=== PATIENT | female | born 1935 | race Caucasian/White ===

== ENCOUNTER 2022-01-10 06:49 | Day surgery (SDC) | payer MEDICARE ==
[~2022-01-10] VITALS: Ht 149.9 cm; Wt 75.2 kg
[2022-01-10] VITALS (11 sets, daily range): BP systolic 112–180; BP diastolic 52–72
[2022-01-10] MEDS ORDERED: diphenhydrAMINE 25mg capsule PO PRN (07:20)
[2022-01-10] MEDS ORDERED: normal saline 1,000 ML IV SCH (07:20)
[2022-01-10] MEDS ORDERED: DICL50TA6 PO (07:39)
[2022-01-10] MEDS ORDERED: ASPI81TA52 PO (07:39)
[2022-01-10] MEDS ORDERED: CARV-50 PO (07:39)
[2022-01-10] MEDS ORDERED: FURO-150 PO (07:39)
[2022-01-10] MEDS ORDERED: LOVA20TA2 PO (07:39)
[2022-01-10 08:13] LABS: ALBUMIN 3.7 G/DL (3.4-5.0); ANION GAP 9 (8-16); BASOPHILS # (AUTO) 0.1 X10'3 (0-0.2); BASOPHILS % (AUTO) 1.4 % (0-1); BLOOD UREA NITROGEN 28 MG/DL (7-18); BUN/CREATININE RATIO 27.7 (6.6-38.0); CALCIUM 9.5 MG/DL (8.5-10.1); CHLORIDE 101 MMOL/L (99-107); CREATININE 1.01 MG/DL (0.40-0.90); EOSINOPHILS # (AUTO) 0.3 X10'3 (0-0.9); GLUCOSE 147 MG/DL (70-104); LYMPHOCYTES # (AUTO) 1.9 X10'3 (1.1-4.8); MAGNESIUM 2.3 MG/DL (1.5-2.4); MEAN CORPUSCULAR HEMOGLOBIN 31.2 PG (27.0-31.0); MEAN CORPUSCULAR HGB CONC 33.4 g/dL (33.0-36.5); MEAN CORPUSCULAR VOLUME 93.4 FL (78-98); MEAN PLATELET VOLUME 8.5 FL (7.4-10.4); MONOCYTES # (AUTO) 0.6 X10'3 (0-0.9); MONOCYTES % (AUTO) 7.7 % (2-12); NEUTROPHILS # (AUTO) 4.4 X10'3 (1.8-7.7); NEUTROPHILS % (AUTO) 60.9 % (42-75); PLATELET COUNT 237 X10'3 (140-440); POTASSIUM 3.9 MMOL/L (3.5-5.1); RED BLOOD COUNT 3.85 X10'6 (4.20-5.60); RED CELL DISTRIBUTION WIDTH 13.5 % (11.5-14.5); SODIUM 138 MMOL/L (135-145); TOTAL CARBON DIOXIDE 27.8 MMOL/L (24-32); WHITE BLOOD COUNT 7.3 X10'3 (4.5-11.0); eGFR 52 ML/MIN
[2022-01-10] MEDS ORDERED: midazolam 1 mg/ML 2ml injection ONE ×3 (08:49→09:34)
[2022-01-10] MEDS ORDERED: nitroGLYCERIN-Tridil 50MG/D5W 0 ML IV ONE (08:49)
[2022-01-10] MEDS ORDERED: LIDOcaine 1% 30ml preserv. free vial ONE (08:49)
[2022-01-10] MEDS ORDERED: heparin 1,000unit/ml 10ml vial 10 ML ONE (08:50)
[2022-01-10] MEDS ORDERED: iohexol 350MG/ML 100ml bottle IV ONE ×2 (08:50→09:48)
[2022-01-10] MEDS ORDERED: iohexol 350 MG/ML 50ML vial IV ONE (08:51)
[2022-01-10] MEDS ORDERED: nitroGLYCERIN 0.4mg SUBLingual tab SL ONE (10:05)
[2022-01-10] MEDS ORDERED: proCHLORperazine 10 MG/2 ml inj IV PRN (11:10)
[2022-01-10] MEDS ORDERED: ondansetron/PF 4mg/2ml inj IV PRN (11:10)
[2022-01-10] MEDS ORDERED: HYDROcodone/acetaminophen 10/325mg tab PO PRN (11:40)
[2022-01-10] MEDS ORDERED: HYDROcodone/acetaminophen 5mg/325mg tablet PO PRN (11:40)
== END 2022-01-10 14:10 | disposition home or self-care (01) ==
LOC: SSTAY O 06:49
PROVIDERS: ATTEND Internal Medicine Cardiovascular Disease
DX: I25.118 Atherosclerotic heart disease of native coronary artery with other forms of angina pectoris (principal); I65.23 Occlusion and stenosis of bilateral carotid arteries; I35.0 Nonrheumatic aortic (valve) stenosis; I10 Essential (primary) hypertension; I25.2 Old myocardial infarction; E78.5 Hyperlipidemia, unspecified; Z95.1 Presence of aortocoronary bypass graft; Z95.5 Presence of coronary angioplasty implant and graft; Z98.890 Other specified postprocedural states; Z90.710 Acquired absence of both cervix and uterus; Z96.652 Presence of left artificial knee joint; Z79.82 Long term (current) use of aspirin; Z79.899 Other long term (current) drug therapy; Z87.891 Personal history of nicotine dependence; Z88.5 Allergy status to narcotic agent; Z88.0 Allergy status to penicillin
CPT/HCPCS: 36415; 80048; 83735; 85025; 85610; 93005; 93459; 99152; 99153; C1760; C1769; C1894; J1644; J2250; J3490; J7030; Q0163; Q9967; 36222; A4615; A4620; A6258; C1725

== ENCOUNTER 2022-02-13 07:18 | Inpatient (IN) | payer MEDICARE, MEDICAID ==
[2022-02-12 11:23] LABS: BASOPHILS # (AUTO) 0.1 X10'3 (0-0.2); BASOPHILS % (AUTO) 0.7 % (0-1); EOSINOPHILS # (AUTO) 0.2 X10'3 (0-0.9); EOSINOPHILS % (AUTO) 2.8 % (0-6); LYMPHOCYTES # (AUTO) 1.7 X10'3 (1.1-4.8); LYMPHOCYTES % (AUTO) 24.6 % (21-51); MEAN CORPUSCULAR HEMOGLOBIN 31.2 PG (27.0-31.0); MEAN CORPUSCULAR HGB CONC 33.2 g/dL (33.0-36.5); MEAN CORPUSCULAR VOLUME 94.1 FL (78-98); MEAN PLATELET VOLUME 8.5 FL (7.4-10.4); MONOCYTES # (AUTO) 0.8 X10'3 (0-0.9); NEUTROPHILS % (AUTO) 59.9 % (42-75); PRE OP HEMATOCRIT 35.2 % (35.0-45.0); PRE OP HEMOGLOBIN 11.7 g/dL (12.0-16.0); PRE OP PLATELET COUNT 201 X10'3 (140-440); RED BLOOD COUNT 3.74 X10'6 (4.20-5.60); RED CELL DISTRIBUTION WIDTH 12.9 % (11.5-14.5)
[2022-02-12 11:35] LABS: ALBUMIN 3.6 G/DL (3.4-5.0); ALBUMIN/GLOBULIN RATIO 1.1 (1.1-1.5); ALKALINE PHOSPHATASE 71 IU/L (46-116); BLOOD UREA NITROGEN 16 MG/DL (7-18); BUN/CREATININE RATIO 17.6 (6.6-38.0); CALCIUM 8.4 MG/DL (8.5-10.1); CHLORIDE 101 MMOL/L (99-107); CREATININE 0.91 MG/DL (0.40-0.90); PRE OP ALT 23 U/L (30-65); PRE OP ANION GAP 9 (8-16); PRE OP AST 27 U/L (10-37); PRE OP BILIRUB, TOTAL 0.6 MG/DL (0.0-1.0); PRE OP GLUCOSE 99 MG/DL (70-104); PRE OP POTASSIUM 4.9 MMOL/L (3.4-5.1); PRE OP SODIUM 136 MMOL/L (135-145); TOTAL CARBON DIOXIDE 25.7 MMOL/L (24-32); eGFR 59 ML/MIN
[~2022-02-13] VITALS: Ht 154.9 cm; Wt 75.0 kg
[2022-02-13] VITALS (27 sets, daily range): BP systolic 105–129; BP diastolic 40–64
[~2022-02-13 07:18] MED LIST: CARV-50 PO; DICL50TA6 PO; DOCUMENT DATE & TIME OF BETA-BLOCKER PO ONE; FLAX10007 PO; FURO-150 PO; LOVA40TA2 PO; MAGN250T11 PO; MULT-1085 PO; POTA99CA PO; VITAMIN A; ceFAZolin inj. 2,000 MG in dextrose 5%-water 100 ML IV ONE; famotidine 20mg tablet PO ONE; metoprolol tartrate 12.5mg (1/2 tablet) PO ONE; mupirocin 2% nasal ointment 1gm UD NS ONE; nitroPRUSSIDE 0.2mg/mL in NS 100 ML IV SCH; ringers solution, lacted 1,000 ML IV SCH
--- NOTE | 2022-02-13 08:59 | NUR ---
FAMOTIDINE IS NOT SCANNING PROPERLY. CHECKED IT ANS SCANNED IT MANUALLY. PHARMACY HAS BEEN NOTIFIED SEVERAL TIMES MEDICATION: FAMOTIDINE 20MG EXP 10/16
[2022-02-13] MEDS ORDERED: heparin 10,000 units/1 ML INJ ONE (09:48)
[2022-02-13] MEDS ORDERED: LIDOcaine 1% (10mg/ml) 2ml vial ONE ×2 (09:48→09:54)
[2022-02-13] MEDS ORDERED: sevoflurane 250ml liquid IH ONE (09:59)
[2022-02-13] MEDS ORDERED: PHENYLephrine 10mg/ml 5ml injection IV ONE (09:59)
[2022-02-13] MEDS ORDERED: nitroPRUSSIDE 20mg/NS 100mL (0.2mg/mL) VIAL (200mcg/ml) IV ONE (09:59)
[2022-02-13] MEDS ORDERED: hydrALAZINE 20mg/ml inj. IV PRN (10:00)
[2022-02-13] MEDS ORDERED: labetalol 20mg/4ml (5mg/ml) syringe IV PRN (10:00)
[2022-02-13] MEDS ORDERED: proCHLORperazine 10 MG/2 ml inj IV PRN (10:00)
[2022-02-13] MEDS ORDERED: HYDROmorphone/PF 0.2 MG/ML SYRINGE IV PRN (10:00)
[2022-02-13] MEDS ORDERED: ringers solution, lacted 1,000 ML IV SCH (10:00)
[2022-02-13] MEDS ORDERED: ondansetron/PF 4mg/2ml inj IV PRN ×2 (10:00→11:45)
[2022-02-13] MEDS ORDERED: acetaminophen 1,000mg/100ml IV 100 ML IV PRN (10:00)
[2022-02-13] MEDS ORDERED: meperidine/PF 25mg/ml syringe IV PRN (10:00)
[2022-02-13] MEDS ORDERED: midazolam 1 mg/ML 2ml injection ONE (10:11)
[2022-02-13] MEDS ORDERED: meperidine/PF 25mg/ml syringe ONE (10:12)
[2022-02-13] MEDS ORDERED: propofol inj 20 ML IV ONE (10:33)
[2022-02-13] MEDS ORDERED: LIDOcaine 2% (20mg/ml) 5ml vial ONE (10:33)
[2022-02-13] MEDS ORDERED: rocuronium 10mg/ml inj IV ONE (10:33)
[2022-02-13] MEDS ORDERED: ePHEDrine 50MG/ML INJ. ONE (10:33)
[2022-02-13] MEDS ORDERED: 0.9 % SODIUM CHLORIDE 10 ML VIAL ONE (10:47)
[2022-02-13] MEDS ORDERED: ondansetron/PF 4mg/2ml inj ONE (10:47)
[2022-02-13] MEDS ORDERED: dexamethasone sod phosphate 4mg/ml inj. ONE (10:47)
[2022-02-13] MEDS ORDERED: neostigmine methylsulfate 1 MG/ML 10ml vial ONE (11:35)
[2022-02-13] MEDS ORDERED: glycopyrrolate 0.2mg/ml inj ONE (11:35)
[2022-02-13] MEDS ORDERED: labetalol 20mg/4ml (5mg/ml) syringe IV ONE (11:43)
[2022-02-13] MEDS ORDERED: metoclopramide 5 mg/ml inj IV PRN (11:45)
[2022-02-13] MEDS ORDERED: albuterol 2.5 MG/3 ML nebule NEB PRN (11:45)
[2022-02-13] MEDS ORDERED: naloxone 0.4 mg/ml inj IV PRN (11:45)
--- NOTE | 2022-02-13 11:49 | NUR ---
Received from OR via ICU BED , accompanied by Anesthesiologist KELLEY and report given by Anesthesiolgist. ART LINE IN RIGHT UE WELL 20GPIV IN LEFT UE RUNNING LR AT 100. PAINFUL AT THIS TIME. STATES 8-10 HEAD ACHE. WILL MEDICATE TO ASSIST. HOB ELEVATED SLIGHTLY. PATIENT WITTH 10L MASK ON WITH 99% SATURATIONS. PATIENT WITH LEFT NECK DRESSING THAT IS CDI. MARYBETH DRAIN IN PLACE. SCDS DONNED UPON ARRIVAL. PATIENT WITH ONE BAG OF BELONGINGS PLACED ON FOB. PATIENT WITH SYMMETRICAL SMILE, TONGUE MIDLINE AND UE'S AND LE'S PUSH PULLS AND CORPORATE TRAVEL MANAGER ALL EQUAL. Addendum: 02/13/22 at 1206 by Mark Denton RN, RN Amended: Links added.
[2022-02-13] MEDS ORDERED: niCARdipine I.V. 50 MG in normal saline 250ml IV soln 230 ML IV SCH (11:50)
[2022-02-13] MEDS: meperidine/PF 25mg/ml syringe IV PRN ×2 (12:12→12:18)
--- NOTE | 2022-02-13 12:41 | NUR ---
PUSH PULLS AND CHEMICAL SUPERVISOR ALL STILL EQUAL AND STRONG TONGUE MIDLINE, SMILE SYMMETRICAL AND PATIENT ABLE TO SWALLOW. NECK DRESSING STILL CDI. Addendum: 02/13/22 at 1244 by Mark Denton RN, RN Amended: Links added.
[2022-02-13] MEDS ORDERED: [UNRECOGNIZED DRUG - OTHER] IV SCH (13:00)
[2022-02-13] MEDS ORDERED: NICARDIPINE IV SCH (13:00)
--- NOTE | 2022-02-13 13:10 | NUR ---
RODBUSTER DAREN NOTIFIED OF CUFF VS ART LINE BPS 110 CUFF WITH 120 ART. MATERIAL LIAISON DAREN STATES THIS IS ACCEPTABLE. AWAITING ROOM AVAILABLILITY IN THE ICU. Addendum: 02/13/22 at 1311 by Mark Denton RN, RN Amended: Links added.
--- NOTE | 2022-02-13 14:14 | NUR ---
REPORT GIVEN AND ALL QUESTIONS ANSWERED. PATIENT TRANSFERRED TO ICU. LABELED BELONGINGS PRESENT AND DELIVERED TO ROOM. RN PRESENT ALL CRITERIA FOR TRANSFER BACK TO THE FLOOR HAS BEEN ACHIEVED. VSS. PAIN AT A TOLERABLE LEVEL. BED LOW, CALL LIGHT PRESENT AND 2 RAILS DOWN. RN AWARE THAT PATIENT HAS ARRIVED. TO ACCEPT CARE OF PATIENT.DENTURES X2 IN MOUTH. ONE BAG OF BELONGINGS SENT WITH PATIENT. Addendum: 02/13/22 at 1431 by Mark Denton RN, RN Amended: Links added.
[2022-02-13] MEDS ORDERED: acetaminophen 325mg tablet PO PRN (15:10)
[2022-02-13] MEDS: phenylephrine inj 50 MG in normal saline 250ml IV solN IV SCH (15:42)
[2022-02-13] MEDS: niCARDipine-NS 40mg/200ml IVPB 200 ML IV SCH ×2 (15:44→22:40)
[2022-02-13] MEDS: ceFAZolin 1GM/D5W- ADD-VANTAGE 50 ML IV SCH (16:11)
--- NOTE | 2022-02-13 18:20 | NUR ---
Report to Manda ALEJO
--- NOTE | 2022-02-13 18:30 | NUR ---
Patient in room CICU 2007. I have received report from Rios ALEJO and had the opportunity to ask questions and assume patient care.
[2022-02-13] MEDS: HYDROcodone/acetaminophen 5mg/325mg tablet PO PRN ×2 (19:52→23:40)
[2022-02-13] MEDS: DICLOFENAC POTASSIUM 50 MG PO SCH (20:00)
[2022-02-14] VITALS (11 sets, daily range): BP systolic 110–143; BP diastolic 49–71
[2022-02-14] MEDS: ceFAZolin 1GM/D5W- ADD-VANTAGE 50 ML IV SCH ×2 (00:10→07:44)
[2022-02-14 03:58] LABS: BASOPHILS % (AUTO) 0.6 % (0-1); EOSINOPHILS % (AUTO) 0 % (0-6); HEMATOCRIT 29.9 % (35.0-45.0); LYMPHOCYTES # (AUTO) 0.9 X10'3 (1.1-4.8); MEAN CORPUSCULAR HEMOGLOBIN 31.1 PG (27.0-31.0); MEAN CORPUSCULAR HGB CONC 33.5 g/dL (33.0-36.5); MEAN CORPUSCULAR VOLUME 92.8 FL (78-98); MEAN PLATELET VOLUME 8.7 FL (7.4-10.4); MONOCYTES # (AUTO) 0.4 X10'3 (0-0.9); MONOCYTES % (AUTO) 11.7 % (2-12); NEUTROPHILS # (AUTO) 2.3 X10'3 (1.8-7.7); NEUTROPHILS % (AUTO) 63.7 % (42-75); PLATELET COUNT 177 X10'3 (140-440); RED BLOOD COUNT 3.22 X10'6 (4.20-5.60); WHITE BLOOD COUNT 3.7 X10'3 (4.5-11.0)
[2022-02-14 04:05] LABS: ALBUMIN 3.1 G/DL (3.4-5.0); ANION GAP 6 (8-16); BLOOD UREA NITROGEN 13 MG/DL (7-18); BUN/CREATININE RATIO 18.1 (6.6-38.0); CALCIUM 8.1 MG/DL (8.5-10.1); CHLORIDE 103 MMOL/L (99-107); CREATININE 0.72 MG/DL (0.40-0.90); GLUCOSE 152 MG/DL (70-104); POTASSIUM 3.9 MMOL/L (3.5-5.1); SODIUM 135 MMOL/L (135-145); TOTAL CARBON DIOXIDE 25.7 MMOL/L (24-32); eGFR 77 ML/MIN
[2022-02-14] MEDS: phenylephrine inj 50 MG in normal saline 250ml IV solN IV SCH (04:11)
[2022-02-14] MEDS: niCARDipine-NS 40mg/200ml IVPB 200 ML IV SCH (06:40)
[2022-02-14] MEDS ORDERED: CLOP-32 PO (07:50)
[2022-02-14] MEDS: DICLOFENAC POTASSIUM 50 MG PO SCH (08:00)
[2022-02-14] MEDS ORDERED: non-formulary drug (Magnesium Oxide (Magnesium) 250 MG) PO SCH (08:00)
[2022-02-14] MEDS ORDERED: clopidogrel 75mg tablet PO SCH (08:00)
[2022-02-14] MEDS ORDERED: carVEDilol 12.5mg tablet PO SCH (08:00)
[2022-02-14] MEDS ORDERED: multivitamins, therapeutics tablet PO SCH (08:00)
[2022-02-14] MEDS ORDERED: furosemide 20MG tablet PO SCH (08:00)
[2022-02-14] MEDS ORDERED: atorvastatin 10mg tablet PO SCH (08:00)
== END 2022-02-14 11:15 | disposition home or self-care (01) | DRG 39 ==
LOC: PAS IN 07:45 → UNDOADMIN 07:45 → PAS IN 11:47 → CICU 2S 13:20 → PAS IN 13:34 → CICU 2S 13:34
PROVIDERS: ADMIT Thoracic Surgery (Cardiothoracic Vascular Surgery); ATTEND Thoracic Surgery (Cardiothoracic Vascular Surgery)
PROC: 03CN0ZZ Extirpation of Matter from Left External Carotid Artery, Open Approach (ICD-10-PCS; 2022-02-13)
PROC: 03CL0ZZ Extirpation of Matter from Left Internal Carotid Artery, Open Approach (ICD-10-PCS; 2022-02-13)
PROC: 03UL0KZ Supplement Left Internal Carotid Artery with Nonautologous Tissue Substitute, Open Approach (ICD-10-PCS; 2022-02-13)
PROC: 03UN0KZ Supplement Left External Carotid Artery with Nonautologous Tissue Substitute, Open Approach (ICD-10-PCS; 2022-02-13)
PROC: 03UJ0KZ Supplement Left Common Carotid Artery with Nonautologous Tissue Substitute, Open Approach (ICD-10-PCS; 2022-02-13)
PROC: 03CJ0ZZ Extirpation of Matter from Left Common Carotid Artery, Open Approach (ICD-10-PCS; principal; 2022-02-13 09:59)
DX: I65.22 Occlusion and stenosis of left carotid artery (principal); I35.0 Nonrheumatic aortic (valve) stenosis; E78.5 Hyperlipidemia, unspecified; I10 Essential (primary) hypertension
CPT/HCPCS: 36415; 71045; 71046; 80048; 80053; 82948; 85025; 86885; 86900; 86901; 87081; 93005; A4615; A4618; A6250; A6258; A6402; A6449; A7000; C1768; G0378; J0131; J0690; J1100; J1644; J2175; J2250; J2370; J2405; J2704; J2710; J3490; J7030; J7050; J7060; J7120

== ENCOUNTER 2022-03-21 07:39 | Day surgery (SDC) | payer MEDICARE, MEDICAID ==
[2022-03-14 16:08] LABS: BASOPHILS # (AUTO) 0.1 X10'3 (0-0.2); BASOPHILS % (AUTO) 0.8 % (0-1); EOSINOPHILS # (AUTO) 0.3 X10'3 (0-0.9); EOSINOPHILS % (AUTO) 4.1 % (0-6); LYMPHOCYTES # (AUTO) 2.1 X10'3 (1.1-4.8); LYMPHOCYTES % (AUTO) 30.5 % (21-51); MEAN CORPUSCULAR HEMOGLOBIN 30.9 PG (27.0-31.0); MEAN CORPUSCULAR HGB CONC 33.6 g/dL (33.0-36.5); MEAN CORPUSCULAR VOLUME 91.9 FL (78-98); MEAN PLATELET VOLUME 7.8 FL (7.4-10.4); MONOCYTES # (AUTO) 0.5 X10'3 (0-0.9); MONOCYTES % (AUTO) 7.5 % (2-12); NEUTROPHILS % (AUTO) 57.1 % (42-75); PRE OP HEMATOCRIT 35.8 % (35.0-45.0); PRE OP PLATELET COUNT 236 X10'3 (140-440); RED CELL DISTRIBUTION WIDTH 13.1 % (11.5-14.5)
[2022-03-14 16:23] LABS: ALBUMIN/GLOBULIN RATIO 1.3 (1.1-1.5); ALKALINE PHOSPHATASE 81 IU/L (46-116); BLOOD UREA NITROGEN 23 MG/DL (7-18); BUN/CREATININE RATIO 22.1 (6.6-38.0); CALCIUM 9.1 MG/DL (8.5-10.1); CHLORIDE 102 MMOL/L (99-107); CREATININE 1.04 MG/DL (0.40-0.90); PRE OP ALT 24 U/L (30-65); PRE OP ANION GAP 6 (8-16); PRE OP AST 24 U/L (10-37); PRE OP BILIRUB, TOTAL 0.6 MG/DL (0.0-1.0); PRE OP GLUCOSE 131 MG/DL (70-104); PRE OP POTASSIUM 4.8 MMOL/L (3.4-5.1); PRE OP SODIUM 137 MMOL/L (135-145); TOTAL CARBON DIOXIDE 29.5 MMOL/L (24-32); TOTAL PROTEIN 7.2 G/DL (6.4-8.2); eGFR 50 ML/MIN
[~2022-03-21] VITALS: Ht 157.5 cm; Wt 75.8 kg
[~2022-03-21 07:39] MED LIST changes: +BUPIVAcaine/PF 5 mg/ml 10ml ONE; -FLAX10007 PO; -MAGN250T11 PO; -MULT-1085 PO; +OMEP20CA16 PO; -POTA99CA PO; -VITAMIN A; -ceFAZolin inj. 2,000 MG in dextrose 5%-water 100 ML IV ONE; +clindamycin 600mg/D5W 50ml 50 ML IV ONE; -metoprolol tartrate 12.5mg (1/2 tablet) PO ONE; -mupirocin 2% nasal ointment 1gm UD NS ONE; -nitroPRUSSIDE 0.2mg/mL in NS 100 ML IV SCH
[2022-03-21 07:55] VITALS: BP 185/88
[2022-03-21] MEDS ORDERED: LIDOcaine 0.5% (5mg/ml) 50ml vial ONE (10:17)
[2022-03-21] MEDS ORDERED: hydrALAZINE 20mg/ml inj. IV PRN (10:25)
[2022-03-21] MEDS ORDERED: labetalol 20mg/4ml (5mg/ml) syringe IV PRN (10:25)
[2022-03-21] MEDS ORDERED: acetaminophen 1,000mg/100ml IV 100 ML IV PRN (10:25)
[2022-03-21] MEDS ORDERED: proCHLORperazine 10 MG/2 ml inj IV PRN (10:25)
[2022-03-21] MEDS ORDERED: ondansetron/PF 4mg/2ml inj IV PRN (10:25)
[2022-03-21] MEDS ORDERED: meperidine/PF 25mg/ml syringe IV PRN ×3 (10:25)
[2022-03-21] MEDS ORDERED: ringers solution, lacted 1,000 ML IV SCH (10:25)
[2022-03-21] MEDS ORDERED: midazolam 1 mg/ML 2ml injection ONE (10:39)
[2022-03-21] MEDS ORDERED: propofol inj 20 ML IV ONE (10:55)
[2022-03-21] MEDS ORDERED: meperidine/PF 25mg/ml syringe ONE (10:55)
[2022-03-21 11:03] VITALS: BP 100/64
--- NOTE | 2022-03-21 11:03 | NUR ---
Received from OR via INA, accompanied by Anesthesiologist and report given by Anesthesiologist. PATIENT WAKING UP, NO S/S OF PAIN, V/S WNL, PIV 20G TO RIGHT HAND, LEFT WRIST DRESSING C/D/I. ICE AND ELEVATED LUE. Addendum: 03/21/22 at 1121 by Waylon Kirk RN Amended: Links added.
[2022-03-21 11:10] VITALS: BP 101/67
[2022-03-21 11:20] VITALS: BP 102/73
[2022-03-21 11:30] VITALS: BP 118/63
--- NOTE | 2022-03-21 11:38 | NUR ---
ALL DISCHARGE CRITERIA HAS BEEN MET. VSS, PAIN AT A TOLERABLE LEVEL, ABLE TO SAFELY AMBULATE AND TRANSFER SELF. IV TAKEN OUT WITHOUT ANY COMPLICATIONS. ALL DISCHARGE INSTRUCTIONS COVERED WITH PATIENT AND ALL QUESTIONS ANSWERED. PATIENT TAKEN OUT VIA WHEELCHAIR WITH ALL BELONGINGS TO PERSONAL VEHICLE WHERE FRIEND DROVE PATIENT HOME. Addendum: 03/21/22 at 1152 by Waylon Kirk RN Amended: Links added.
== END 2022-03-21 11:38 | disposition home or self-care (01) ==
LOC: PAS 07:39
PROVIDERS: ATTEND Orthopaedic Surgery Hand Surgery
DX: G56.02 Carpal tunnel syndrome, left upper limb (principal); I10 Essential (primary) hypertension; I25.2 Old myocardial infarction; E11.9 Type 2 diabetes mellitus without complications; M19.90 Unspecified osteoarthritis, unspecified site; Z79.82 Long term (current) use of aspirin; Z79.899 Other long term (current) drug therapy; Z88.1 Allergy status to other antibiotic agents; Z88.5 Allergy status to narcotic agent; Z88.0 Allergy status to penicillin; Z88.4 Allergy status to anesthetic agent; Z90.710 Acquired absence of both cervix and uterus; Z90.49 Acquired absence of other specified parts of digestive tract; Z98.890 Other specified postprocedural states; Z95.1 Presence of aortocoronary bypass graft; Z87.891 Personal history of nicotine dependence
CPT/HCPCS: 36415; 64721; 80053; 82948; 85025; J2175; J2250; J2704; J3490; J7030; J7120; Z7506; Z7512; A4215

== ENCOUNTER 2022-05-26 06:34 | Day surgery (SDC) | payer MEDICARE, MEDICAID ==
[~2022-05-26] VITALS: Ht 157.5 cm; Wt 78.0 kg
[2022-05-26] VITALS (10 sets, daily range): BP systolic 129–165; BP diastolic 52–93
[~2022-05-26 06:34] MED LIST changes: -BUPIVAcaine/PF 5 mg/ml 10ml ONE; -DOCUMENT DATE & TIME OF BETA-BLOCKER PO ONE; -clindamycin 600mg/D5W 50ml 50 ML IV ONE; -famotidine 20mg tablet PO ONE; -ringers solution, lacted 1,000 ML IV SCH
[2022-05-26] MEDS ORDERED: diphenhydrAMINE 25mg capsule PO PRN (07:05)
[2022-05-26] MEDS ORDERED: normal saline 1,000 ML IV SCH (07:05)
[2022-05-26 07:51] LABS: BASOPHILS # (AUTO) 0.1 X10'3 (0-0.2); BASOPHILS % (AUTO) 1.2 % (0-1); EOSINOPHILS # (AUTO) 0.3 X10'3 (0-0.9); EOSINOPHILS % (AUTO) 4.3 % (0-6); HEMATOCRIT 35.2 % (35.0-45.0); LYMPHOCYTES # (AUTO) 1.6 X10'3 (1.1-4.8); LYMPHOCYTES % (AUTO) 22.8 % (21-51); MEAN CORPUSCULAR VOLUME 91.2 FL (78-98); MEAN PLATELET VOLUME 8.8 FL (7.4-10.4); MONOCYTES # (AUTO) 0.6 X10'3 (0-0.9); MONOCYTES % (AUTO) 8.4 % (2-12); NEUTROPHILS # (AUTO) 4.4 X10'3 (1.8-7.7); NEUTROPHILS % (AUTO) 63.3 % (42-75); PLATELET COUNT 213 X10'3 (140-440); RED BLOOD COUNT 3.86 X10'6 (4.20-5.60); RED CELL DISTRIBUTION WIDTH 13.6 % (11.5-14.5); WHITE BLOOD COUNT 6.9 X10'3 (4.5-11.0)
[2022-05-26] MEDS ORDERED: CARV6.2553 PO (07:54)
[2022-05-26] MEDS ORDERED: ASPI81TA52 PO (07:54)
[2022-05-26] MEDS ORDERED: GLUC100017 PO (07:54)
[2022-05-26] MEDS ORDERED: DICL50TA14 PO (07:54)
[2022-05-26] MEDS ORDERED: LIFI1DRO EACHEYE (07:54)
[2022-05-26] MEDS ORDERED: NITR1PAT63 TOP (07:54)
[2022-05-26] MEDS ORDERED: FURO40TA4 PO (07:54)
[2022-05-26] MEDS ORDERED: CLOP75TA34 PO (07:54)
[2022-05-26] MEDS ORDERED: POTA-206 PO (07:54)
[2022-05-26 08:02] LABS: ALBUMIN 3.9 G/DL (3.4-5.0); ANION GAP 11 (8-16); BLOOD UREA NITROGEN 26 MG/DL (7-18); BUN/CREATININE RATIO 23.9 (10.0-20.0); CALCIUM 9.1 MG/DL (8.5-10.1); CHLORIDE 104 MMOL/L (99-107); CREATININE 1.09 MG/DL (0.40-0.90); GLUCOSE 146 MG/DL (70-104); MAGNESIUM 2.4 MG/DL (1.5-2.4); POTASSIUM 4.1 MMOL/L (3.5-5.1); SODIUM 138 MMOL/L (135-145); TOTAL CARBON DIOXIDE 23.4 MMOL/L (24-32); eGFR 48 ML/MIN
[2022-05-26] MEDS ORDERED: nitroGLYCERIN-Tridil 50MG/D5W 0 ML IV ONE (08:46)
[2022-05-26] MEDS ORDERED: verapamil 2.5 mg/ml inj IV ONE (08:46)
[2022-05-26] MEDS ORDERED: heparin 1,000unit/ml 10ml vial 10 ML ONE (08:47)
[2022-05-26] MEDS ORDERED: LIDOcaine 1% (10mg/ml) 2ml vial ONE (08:47)
[2022-05-26] MEDS ORDERED: midazolam 1 mg/ML 2ml injection ONE ×2 (08:47→09:24)
[2022-05-26] MEDS ORDERED: iohexol 350MG/ML 100ml bottle IV ONE (08:47)
[2022-05-26] MEDS ORDERED: fentaNYL/PF 50MCG/1 ML 2ML syringe ONE (08:47)
[2022-05-26] MEDS ORDERED: iohexol 350 MG/ML 50ML vial IV ONE (08:47)
[2022-05-26] MEDS ORDERED: LIDOcaine 1% 30ml preserv. free vial ONE (08:48)
[2022-05-26] MEDS ORDERED: ondansetron/PF 4mg/2ml inj IV PRN (10:25)
[2022-05-26] MEDS ORDERED: HYDROcodone/acetaminophen 10/325mg tab PO PRN (10:25)
[2022-05-26] MEDS ORDERED: HYDROcodone/acetaminophen 5mg/325mg tablet PO PRN (10:25)
[2022-05-26] MEDS ORDERED: proCHLORperazine 10 MG/2 ml inj IV PRN (10:25)
[2022-05-26] MEDS ORDERED: normal saline 1000ml 1,000 ML IV SCH (10:25)
== END 2022-05-26 13:30 | disposition home or self-care (01) ==
LOC: SSTAY O 06:34
PROVIDERS: ATTEND Internal Medicine Cardiovascular Disease
DX: I25.118 Atherosclerotic heart disease of native coronary artery with other forms of angina pectoris (principal); I35.0 Nonrheumatic aortic (valve) stenosis; I10 Essential (primary) hypertension; E78.5 Hyperlipidemia, unspecified; I25.2 Old myocardial infarction; Z86.14 Personal history of Methicillin resistant Staphylococcus aureus infection; Z79.899 Other long term (current) drug therapy; Z98.890 Other specified postprocedural states; Z88.6 Allergy status to analgesic agent; Z88.8 Allergy status to other drugs, medicaments and biological substances
CPT/HCPCS: 36415; 80048; 83735; 85025; 85610; 93005; 93461; 99152; 99153; C1769; C1894; J1644; J2250; J3010; J3490; J7030; Q0163; Q9967; A4615; A6258; C1725; C1751

== ENCOUNTER 2022-09-19 11:50 | Outpatient (CLI) | payer MEDICARE, MEDICAID ==
[~2022-09-19 11:50] MED LIST changes: +ASPI81TA52 PO; -CARV-50 PO; +CARV6.2553 PO; +CLOP75TA34 PO; +DICL50TA14 PO; -DICL50TA6 PO; -FURO-150 PO; +FURO40TA4 PO; +GLUC100017 PO; +LIFI1DRO EACHEYE; +NITR1PAT63 TOP; +POTA-206 PO
[2022-09-19 12:33] LABS: BASOPHILS # (AUTO) 0.1 X10'3 (0-0.2); BASOPHILS % (AUTO) 0.8 % (0-1); EOSINOPHILS # (AUTO) 0.3 X10'3 (0-0.9); EOSINOPHILS % (AUTO) 3.8 % (0-6); HEMATOCRIT 34.8 % (35.0-45.0); HEMOGLOBIN 11.4 g/dl (12.0-16.0); LYMPHOCYTES # (AUTO) 1.8 X10'3 (1.1-4.8); LYMPHOCYTES % (AUTO) 21.5 % (21-51); MEAN CORPUSCULAR HEMOGLOBIN 30.3 PG (27.0-31.0); MEAN CORPUSCULAR HGB CONC 32.7 g/dL (33.0-36.5); MEAN CORPUSCULAR VOLUME 92.8 FL (78-98); MEAN PLATELET VOLUME 8.2 FL (7.4-10.4); MONOCYTES # (AUTO) 0.6 X10'3 (0-0.9); MONOCYTES % (AUTO) 7.7 % (2-12); NEUTROPHILS # (AUTO) 5.5 X10'3 (1.8-7.7); NEUTROPHILS % (AUTO) 66.2 % (42-75); PLATELET COUNT 235 X10'3 (140-440); RED BLOOD COUNT 3.75 X10'6 (4.20-5.60); RED CELL DISTRIBUTION WIDTH 14.7 % (11.5-14.5); WHITE BLOOD COUNT 8.2 X10'3 (4.5-11.0)
[2022-09-19 12:44] LABS: APTT 27 SECONDS (22-32)
[2022-09-19 12:55] LABS: ALANINE AMINOTRANSFERASE 15 U/L (12-78); ALBUMIN 3.4 G/DL (3.4-5.0); ALBUMIN/GLOBULIN RATIO 1.1 (1.1-1.5); ALKALINE PHOSPHATASE 66 IU/L (46-116); ANION GAP 10 (8-16); ASPARTATE AMINO TRANSFERASE 12 U/L (10-37); BILIRUBIN,TOTAL 0.6 MG/DL (0.1-1.0); BLOOD UREA NITROGEN 23 MG/DL (7-18); BUN/CREATININE RATIO 21.3 (10.0-20.0); CALCIUM 9.3 MG/DL (8.5-10.1); CHLORIDE 103 MMOL/L (99-107); CREATININE 1.08 MG/DL (0.40-0.90); GLUCOSE 116 MG/DL (70-104); POTASSIUM 4.3 MMOL/L (3.5-5.1); SODIUM 138 MMOL/L (135-145); TOTAL CARBON DIOXIDE 25.3 MMOL/L (24-32); TOTAL PROTEIN 6.6 G/DL (6.4-8.2); eGFR 48 ML/MIN
[2022-09-19] MEDS ORDERED: IODIXANOL 320 MG/ML INFUS..BTL 100ML IV ONE (12:57)
== END 2022-09-19 23:59 | disposition home or self-care (01) ==
LOC: RAD 11:50
PROVIDERS: ATTEND Internal Medicine Cardiovascular Disease
DX: J44.9 Chronic obstructive pulmonary disease, unspecified (principal); J84.112 Idiopathic pulmonary fibrosis; I35.0 Nonrheumatic aortic (valve) stenosis; R94.2 Abnormal results of pulmonary function studies; D64.9 Anemia, unspecified; R06.02 Shortness of breath; I65.29 Occlusion and stenosis of unspecified carotid artery; J98.4 Other disorders of lung; I35.8 Other nonrheumatic aortic valve disorders; I51.7 Cardiomegaly; M19.011 Primary osteoarthritis, right shoulder; M19.012 Primary osteoarthritis, left shoulder; Z95.1 Presence of aortocoronary bypass graft
CPT/HCPCS: 36415; 71046; 71275; 74174; 80053; 83880; 85025; 85610; 85730; 94010; 94727; 94729; J3490; Q9967

== ENCOUNTER 2022-10-30 05:17 | Inpatient (IN) | payer MEDICARE, MEDICAID ==
[2022-10-22 14:52] LABS: BASOPHILS # (AUTO) 0.1 X10'3 (0-0.2); EOSINOPHILS # (AUTO) 0.2 X10'3 (0-0.9); EOSINOPHILS % (AUTO) 2.4 % (0-6); LYMPHOCYTES # (AUTO) 2.1 X10'3 (1.1-4.8); LYMPHOCYTES % (AUTO) 29.4 % (21-51); MEAN CORPUSCULAR HEMOGLOBIN 31.8 PG (27.0-31.0); MEAN CORPUSCULAR HGB CONC 33.8 g/dL (33.0-36.5); MEAN CORPUSCULAR VOLUME 94.2 FL (78-98); MEAN PLATELET VOLUME 7.5 FL (7.4-10.4); MONOCYTES # (AUTO) 0.6 X10'3 (0-0.9); MONOCYTES % (AUTO) 8.5 % (2-12); NEUTROPHILS # (AUTO) 4.2 X10'3 (1.8-7.7); NEUTROPHILS % (AUTO) 58.7 % (42-75); PRE OP HEMOGLOBIN 12.1 g/dL (12.0-16.0); PRE OP PLATELET COUNT 220 X10'3 (140-440); PRE OP WHITE BLOOD COUNT 7.2 10'3 (4.8-10.8); RED BLOOD COUNT 3.82 X10'6 (4.20-5.60); RED CELL DISTRIBUTION WIDTH 13.9 % (11.5-14.5)
[2022-10-22 15:09] LABS: BILIRUBIN,URINE NEGATIVE (Neg); CLARITY,URINE SLIGHTLY CLOUDY (Clear); COLOR,URINE YELLOW (Yellow); GLUCOSE, URINE NEGATIVE (Neg); KETONES,URINE NEGATIVE (Neg); LEUKOCYTE ESTERASE ,URINE MODERATE (Neg); NITRITES, URINE POSITIVE (Neg); OCCULT BLOOD,URINE TRACE-INTACT (Neg); PH,URINE 5.5 (4.8-8.0); PROTEIN,URINE NEGATIVE (Neg); UROBILINOGEN,URINE 0.2 E.U/dL (0.2-1.0)
[2022-10-22 15:20] LABS: UA COLLECTION TYPE CLN CATCH MIDSTREAM
[2022-10-22 15:25] LABS: ALBUMIN 3.7 G/DL (3.4-5.0); ALBUMIN/GLOBULIN RATIO 1.2 (1.1-1.5); ALKALINE PHOSPHATASE 77 IU/L (46-116); BLOOD UREA NITROGEN 24 MG/DL (7-18); BUN/CREATININE RATIO 21.6 (10.0-20.0); CALCIUM 9.1 MG/DL (8.5-10.1); CHLORIDE 101 MMOL/L (99-107); CREATININE 1.11 MG/DL (0.40-0.90); PRE OP ALT 11 U/L (30-65); PRE OP ANION GAP 9 (8-16); PRE OP AST 13 U/L (10-37); PRE OP BILIRUB, TOTAL 0.7 MG/DL (0.0-1.0); PRE OP GLUCOSE 108 MG/DL (70-104); PRE OP POTASSIUM 4.5 MMOL/L (3.4-5.1); PRE OP SODIUM 137 MMOL/L (135-145); TOTAL CARBON DIOXIDE 26.8 MMOL/L (24-32); TOTAL PROTEIN 6.9 G/DL (6.4-8.2); eGFR 47 ML/MIN
[2022-10-22 15:31] LABS: BACTERIA,URINE 4+ /HPF (Neg); RBC,URINE 0-2 /HPF (0-2); SQUAMOUS EPITHELIAL CELL,UR FEW /LPF (FEW); WBC,URINE TNTC /HPF (0-4)
[2022-10-22 15:32] LABS: MUCUS STRANDS NONE SEEN /LPF (Neg); RENAL CELLS, URINE FEW /HPF; WBC CLUMPS,URINE MODERATE /HPF (NEGATIVE)
[2022-10-22 16:16] LABS: PRE OP INR 0.9 INR; PRE OP PROTIME 10.2 SECONDS (9.0-12.0)
[~2022-10-30] VITALS: Ht 157.5 cm; Wt 72.7 kg
[2022-10-30] VITALS (19 sets, daily range): BP systolic 110–164; BP diastolic 46–79; PULSE 61–83; RESP 11–20; TEMP 96.9–98; O2SAT 92–100
[~2022-10-30 05:17] MED LIST changes: +BETA1TAB19 PO; +CIPR500T88 PO; +FLAX10007 PO; -GLUC100017 PO; -LIFI1DRO EACHEYE; +MULT-1219 PO; -POTA-206 PO; +POTA99CA PO; +RANO500T6 PO; +SACC250C9 PO; +ringers solution, lacted 1,000 ML IV SCH
[2022-10-30] MEDS ORDERED: ondansetron/PF 4mg/2ml inj IV PRN ×3 (05:30→08:55)
[2022-10-30] MEDS: phenylephrine inj 50 MG in normal saline 250ml IV solN IV SCH ×2 (05:30→21:47)
[2022-10-30] MEDS: nitroPRUSSIDE (NIPRIDE) (200MCG/ML) 100ML Drip IV SCH ×2 (05:30→21:47)
[2022-10-30] MEDS ORDERED: famotidine 20mg tablet PO ONE (05:30)
[2022-10-30] MEDS ORDERED: DOCUMENT DATE & TIME OF BETA-BLOCKER PO ONE (05:30)
[2022-10-30] MEDS ORDERED: vancomycin 1,500 MG in NS 300ml IV soln IV ONE (05:30)
[2022-10-30] MEDS ORDERED: aspirin 325mg tablet PO ONE (05:30)
[2022-10-30] MEDS ORDERED: LIDOcaine 1% 30ml preserv. free vial ONE ×2 (06:26→07:31)
[2022-10-30] MEDS ORDERED: heparin 1,000 UNITS/NS 500ml 1,500 ML ONE (06:26)
[2022-10-30] MEDS ORDERED: iohexol 350MG/ML 100ml bottle IV ONE (06:26)
[2022-10-30] MEDS ORDERED: meperidine/PF 25mg/ml syringe IV PRN ×3 (06:55)
[2022-10-30] MEDS ORDERED: proCHLORperazine 10 MG/2 ml inj IV PRN ×2 (06:55→08:55)
[2022-10-30] MEDS ORDERED: ringers solution, lacted 1,000 ML IV SCH (06:55)
[2022-10-30] MEDS ORDERED: protamine sulfate 10mg/ml inj. ONE (06:57)
[2022-10-30] MEDS ORDERED: midazolam 1 mg/ML 2ml injection ONE (07:02)
[2022-10-30] MEDS ORDERED: fentaNYL/PF 50MCG/1 ML 2ML syringe ONE (07:02)
[2022-10-30] MEDS ORDERED: propofol inj 20 ML IV ONE ×2 (07:03→08:19)
[2022-10-30] MEDS ORDERED: LIDOcaine 1% (10mg/ml) 2ml vial ONE (07:12)
[2022-10-30] MEDS ORDERED: heparin 1,000unit/ml 10ml vial 10 ML ONE (07:31)
[2022-10-30] MEDS ORDERED: aspirin 81mg, enteric-coated 1 TAB TABLET.DR PO SCH (08:00)
[2022-10-30] MEDS: carVEDilol 3.125mg tablet PO SCH ×2 (08:00→20:14)
[2022-10-30] MEDS ORDERED: FLAXSEED PO SCH (08:00)
[2022-10-30] MEDS: ranolazine 500mg SR tablet (Q12H) PO SCH ×2 (08:00→20:14)
[2022-10-30] MEDS: lactobacillus acidophilus cap PO SCH (08:00)
[2022-10-30] MEDS ORDERED: [UNRECOGNIZED DRUG - OTHER] PO SCH (08:00)
[2022-10-30] MEDS: furosemide 40mg tablet PO SCH (08:00)
[2022-10-30] MEDS ORDERED: non-formulary drug (Diclofenac Potassium 1 TAB) PO SCH (08:00)
[2022-10-30] MEDS: clopidogrel 75mg tablet PO SCH (08:00)
[2022-10-30] MEDS ORDERED: VIT A C PO SCH (08:00)
[2022-10-30] MEDS ORDERED: LUTEIN PO SCH (08:00)
[2022-10-30] MEDS ORDERED: POTASSIUM CITRATE PO SCH (08:00)
[2022-10-30] MEDS: multivitamins, therapeutics tablet PO SCH (08:00)
[2022-10-30] MEDS: nitroGLYCERIN 0.2mg/hour patch TD SCH (08:00)
[2022-10-30] MEDS ORDERED: MINERALS PO SCH (08:00)
[2022-10-30] MEDS: atorvastatin 10mg tablet PO SCH (08:00)
[2022-10-30] MEDS ORDERED: ALPRAZolam 0.25mg tablet PO PRN (08:55)
[2022-10-30] MEDS ORDERED: HYDROcodone/acetaminophen 5mg/325mg tablet PO PRN (08:55)
[2022-10-30] MEDS ORDERED: docusate sod 100mg capsule PO PRN (08:55)
[2022-10-30] MEDS ORDERED: potassium Cl 20mEq/100mL bag 100 ML IV PRN (08:55)
[2022-10-30] MEDS: normal saline 1000ml 1,000 ML IV SCH ×2 (08:55→18:55)
[2022-10-30] MEDS ORDERED: magnesium 2GM in 50ml NS 50 ML IV PRN (08:55)
[2022-10-30] MEDS ORDERED: potassium CL 10mEq/100ml bag 100 ML IV PRN (08:55)
[2022-10-30] MEDS ORDERED: potassium Cl 40MEQ/1/2NS 520ml 520 ML IV PRN (08:55)
[2022-10-30] MEDS ORDERED: labetalol 20mg/4ml (5mg/ml) syringe IV PRN (08:55)
[2022-10-30] MEDS ORDERED: acetaminophen 325mg tablet PO PRN (08:55)
[2022-10-30] MEDS ORDERED: potassium Cl 40MEQ/270ML bag 250 ML IV PRN (08:55)
[2022-10-30] MEDS ORDERED: pantoprazole 40mg Tablet.DR PO PRN (08:55)
[2022-10-30] MEDS ORDERED: magnesium 4gm in 100ml NS 100 ML IV PRN (08:55)
[2022-10-30] MEDS ORDERED: diphenhydrAMINE 25mg capsule PO PRN (08:55)
[2022-10-30] MEDS ORDERED: potassium Cl 20 mEq SR tablet PO PRN (08:55)
[2022-10-30] MEDS ORDERED: hydrALAZINE 20mg/ml inj. IV PRN (08:55)
--- NOTE | 2022-10-30 09:15 | NUR ---
Received from OR via HOSPITAL BED, accompanied by Anesthesiologist DR HANNA and report given by Anesthesiologist. PT IS GROGGY BUT RESPONDS TO VERBAL STIMULI AND FOLLOWS COMMANDS. PT PLACED ON BEDSIDE MONITOR, VSS. PT IS IN SR WITH RATE IN 70'S. PT NEURO IN TACT, GOOD STRONG BILAT HAND DUST BOX TENDER, SYMMETRICAL SMILE AND TONGUE STRAIGHT. PT HAS GOOD PUSH/PULL TO BLE. PT HAS 20G PIV TO RT HAND WITH LR INFUSING ORDERED. PT ARRIVED WITH CARDIAC GTT'S OFF. PT HAS A-LINE TO LEFT BRACHIAL, LINE IS BEING TRANSDUCED AND HAS BEEN ZEROED. PT HAS DRSG X2 TO RT GROIN AND 1 TO LEFT. ALL 3 DRSG ARE CDI, NO SIGN OF HEMATOMA AT THIS TIME. PT HAS DOPPLER PULSES TO BLE. PT DENIES PAIN AT THIS TIME. WILL CONTINUE TO ASSESS
--- NOTE | 2022-10-30 09:51 | NUR ---
CALL MADE TO TRANSPORTATION SECURITY OFFICER TO INFORM OF CHANGE IN CURRENT EKG WHICH HAS PROLONGED DC AND LBBB. WAS NOT PRESENT ON PRE-OP EKG. NO NEW ORDERS RECEIVED AT THIS TIME. WILL CONTINUE TO ASSESS
--- NOTE | 2022-10-30 10:26 | NUR ---
CARDIAC GTT'S HAVE REMAINED OFF SINCE PT ARRIVED TO PACU. A-LINE TO LT BRACHIAL D/C. HEMOSTASIS ACHIEVED AFTER DIRECT PRESSURE WAS HELD. GAUZE DRSG SECURED WITH COBAN. WILL CONTINUE TO ASSESS
--- NOTE | 2022-10-30 10:53 | NUR ---
Patient in room PAS IN 900. I have received report from Clair ALEJO and had the opportunity to ask questions and assume patient care.
--- NOTE | 2022-10-30 11:22 | NUR ---
PATIENT HAS MET ALL CRITERIA FOR TRANSFER TO THE PCU FLOOR. VSS. DRSG TO LEFT Sara DOMINIQUE HAD SEROSANGUINEOUS DRAINAGE, MD IS AWARE. NEW DRSG PLACED AND IS INTACT. BED LOW, CALL LIGHT PRESENT AND 2 RAILS UP. RN PRESENT TO ACCEPT CARE OF PATIENT AND REPORT HAS BEEN CALLED TO RUBEN ALEJO. ALL QUESTIONS ANSWERED TO ACCEPTING RN.
--- NOTE | 2022-10-30 11:50 | NUR ---
Noted pt on carb controlled diet hx T2DM though no A1C hx; JENN d/w RN regarding A1C this admit if MD agreeable. Given advanced age if pt poor initial meal acceptance recommend liberalizing to regular diet. Addendum: 10/30/22 at [address] Amended: Links added.
--- NOTE | 2022-10-30 11:50 | NUR ---
Pt has AM meds ordered for her today. I discussed with pt and she stated she took all of her AM meds this morning before the procedure, except for the three meds she was specifically told not to take today. I am going to non-admin her meds this AM and wait until next scheduled administration times. All information was covered with pt and questions were answered. Pt seems very knowledgeable about her routine meds.
--- NOTE | 2022-10-30 12:05 | NUR ---
Pt has an ABX due now, Cipro. I am holding the med until pt is OOB at 1500 to not have a risk of aspiration.
[2022-10-30] MEDS: ciprofloxacin 250mg tablet PO SCH ×2 (15:24→20:15)
[2022-10-30] MEDS: sod chloride 0.9% 10ml flush syringe IV SCH ×2 (16:05→20:27)
--- NOTE | 2022-10-30 18:22 | NUR ---
Problems reprioritized. Patient report given, questions answered & plan of care reviewed with Emerson ALEJO.
[2022-10-30] MEDS: vancomycin/NS 1 GM ADD-VANTAGE 250 ML IV SCH (20:17)
[2022-10-31 02:00] VITALS: BP 113/52; PULSE 68; RESP 21; TEMP 97.5; O2SAT 92
[2022-10-31 06:30] VITALS: O2SAT 87
[2022-10-31 07:00] VITALS: BP 128/44; PULSE 67; RESP 18; TEMP 97.6; O2SAT 94
[2022-10-31] MEDS ORDERED: pantoprazole 40mg Tablet.DR PO SCH (07:30)
[2022-10-31 08:14] LABS: BASOPHILS % (AUTO) 0.6 % (0-1); EOSINOPHILS # (AUTO) 0.1 X10'3 (0-0.9); EOSINOPHILS % (AUTO) 1.9 % (0-6); HEMATOCRIT 31.9 % (35.0-45.0); HEMOGLOBIN 10.7 g/dl (12.0-16.0); LYMPHOCYTES # (AUTO) 1.5 X10'3 (1.1-4.8); LYMPHOCYTES % (AUTO) 21.1 % (21-51); MEAN CORPUSCULAR HEMOGLOBIN 31.8 PG (27.0-31.0); MEAN CORPUSCULAR HGB CONC 33.7 g/dL (33.0-36.5); MEAN CORPUSCULAR VOLUME 94.5 FL (78-98); MEAN PLATELET VOLUME 8.3 FL (7.4-10.4); MONOCYTES # (AUTO) 0.7 X10'3 (0-0.9); NEUTROPHILS # (AUTO) 4.9 X10'3 (1.8-7.7); NEUTROPHILS % (AUTO) 66.4 % (42-75); PLATELET COUNT 173 X10'3 (140-440); RED BLOOD COUNT 3.38 X10'6 (4.20-5.60); RED CELL DISTRIBUTION WIDTH 13.7 % (11.5-14.5); WHITE BLOOD COUNT 7.3 X10'3 (4.5-11.0)
[2022-10-31] MEDS ORDERED: aspirin 81mg tab.chew PO SCH (08:30)
[2022-10-31] MEDS: vancomycin/NS 1 GM ADD-VANTAGE 250 ML IV SCH (08:47)
[2022-10-31] MEDS: ranolazine 500mg SR tablet (Q12H) PO SCH (08:47)
[2022-10-31] MEDS: furosemide 40mg tablet PO SCH (08:47)
[2022-10-31] MEDS: atorvastatin 10mg tablet PO SCH (08:48)
[2022-10-31] MEDS: carVEDilol 3.125mg tablet PO SCH (08:48)
[2022-10-31] MEDS: nitroGLYCERIN 0.2mg/hour patch TD SCH (08:48)
[2022-10-31] MEDS: lactobacillus acidophilus cap PO SCH (08:49)
[2022-10-31] MEDS: multivitamins, therapeutics tablet PO SCH (08:49)
[2022-10-31] MEDS: clopidogrel 75mg tablet PO SCH (08:49)
[2022-10-31] MEDS: sod chloride 0.9% 10ml flush syringe IV SCH (08:49)
[2022-10-31 08:59] LABS: ALANINE AMINOTRANSFERASE 15 U/L (12-78); ALBUMIN 3.1 G/DL (3.4-5.0); ALBUMIN/GLOBULIN RATIO 1.1 (1.1-1.5); ALKALINE PHOSPHATASE 72 IU/L (46-116); ANION GAP 9 (8-16); ASPARTATE AMINO TRANSFERASE 15 U/L (10-37); BILIRUBIN,TOTAL 0.8 MG/DL (0.1-1.0); BLOOD UREA NITROGEN 10 MG/DL (7-18); BUN/CREATININE RATIO 12.8 (10.0-20.0); CALCIUM 8.6 MG/DL (8.5-10.1); CHLORIDE 104 MMOL/L (99-107); CREATININE 0.78 MG/DL (0.40-0.90); GLUCOSE 133 MG/DL (70-104); MAGNESIUM 1.9 MG/DL (1.5-2.4); POTASSIUM 3.7 MMOL/L (3.5-5.1); PRO BRAIN NATRIURETIC PEPTIDE 1889 PG/ML (0-450); SODIUM 138 MMOL/L (135-145); TOTAL CARBON DIOXIDE 24.9 MMOL/L (24-32); TOTAL PROTEIN 5.8 G/DL (6.4-8.2); eCRCL 42 ML/MIN; eGFR 70 ML/MIN
[2022-10-31 11:00] VITALS: BP 114/55; PULSE 65; RESP 20; TEMP 98.4; O2SAT 93
[2022-10-31] MEDS: ciprofloxacin 250mg tablet PO SCH (11:54)
--- NOTE | 2022-10-31 14:17 | NUR ---
Pt was Dc'd as per Dr's orders. Pt was unhooked from all Iv and tele. Pt was educated along with family at bedside, all questions were answered. Pt has made appointments already. All belongings were gathered by family and sent down with the pt. I wheeled pt down to lobby in wheelchair. Pt got into a private vehicle destined for home.
== END 2022-10-31 15:00 | disposition home or self-care (01) | DRG 266 ==
LOC: PAS IN 05:17 → PCU 3S 11:36
PROVIDERS: ADMIT Internal Medicine Cardiovascular Disease; ATTEND Internal Medicine Cardiovascular Disease
PROC: 047D3ZZ Dilation of Left Common Iliac Artery, Percutaneous Approach (ICD-10-PCS; 2022-10-30)
PROC: 03HY32Z Insertion of Monitoring Device into Upper Artery, Percutaneous Approach (ICD-10-PCS; 2022-10-30)
PROC: B41D1ZZ Fluoroscopy of Aorta and Bilateral Lower Extremity Arteries using Low Osmolar Contrast (ICD-10-PCS; 2022-10-30)
PROC: 02RF38N Replacement of Aortic Valve with Zooplastic Tissue, using Rapid Deployment Technique, Percutaneous Approach (ICD-10-PCS; principal; 2022-10-30 07:01)
DX: I35.0 Nonrheumatic aortic (valve) stenosis (principal); I50.33 Acute on chronic diastolic (congestive) heart failure; I73.9 Peripheral vascular disease, unspecified; E78.5 Hyperlipidemia, unspecified; I10 Essential (primary) hypertension; I25.10 Atherosclerotic heart disease of native coronary artery without angina pectoris; G89.29 Other chronic pain; M54.9 Dorsalgia, unspecified; Z95.1 Presence of aortocoronary bypass graft; Z95.5 Presence of coronary angioplasty implant and graft
CPT/HCPCS: 33361; 36415; 37220; 71045; 71046; 76937; 80053; 81001; 82948; 83735; 83880; 85025; 85347; 85610; 85730; 86885; 86900; 86901; 86920; 87077; 87081; 87088; 87186; 93005; 93308; A4615; A4618; A6258; A6449; C1725; C1756; C1760; C1769; C1894; G0378; J1644; J2250; J2370; J2704; J2720; J3010; J3370; J3490; J7030; J7040; J7050; J7120; Q9967

== ENCOUNTER 2024-04-08 07:25 | Day surgery (SDC) | payer MEDICARE, MEDICAID ==
[2024-04-08] VITALS (10 sets, daily range): BP systolic 125–165; BP diastolic 63–98; PULSE 57–74; RESP 16–18; TEMP 97.6; O2SAT 91–97
[~2024-04-08] VITALS: Ht 157.5 cm; Wt 71.1 kg
[~2024-04-08 07:25] MED LIST changes: +AMI200T PO; +APIX5TAB3 PO; -CIPR500T88 PO; -NITR1PAT63 TOP; -ringers solution, lacted 1,000 ML IV SCH
[2024-04-08] MEDS ORDERED: NITR1PAT TD (09:33)
[2024-04-08] MEDS ORDERED: AMI200T PO (09:33)
[2024-04-08] MEDS ORDERED: LOSA-415 PO (09:33)
[2024-04-08] MEDS ORDERED: ACET-3414 PO (09:33)
[2024-04-08] MEDS ORDERED: LIFI1DRO LEFTEYE (09:33)
[2024-04-08] MEDS ORDERED: RIVA15TA PO (09:33)
[2024-04-08] MEDS ORDERED: LIFI1DRO RIGHTEYE (09:33)
== END 2024-04-08 11:05 | disposition home or self-care (01) ==
LOC: SSTAY O 07:25
PROVIDERS: ATTEND Internal Medicine Cardiovascular Disease
DX: J90 Pleural effusion, not elsewhere classified (principal); I10 Essential (primary) hypertension; I49.3 Ventricular premature depolarization; I25.2 Old myocardial infarction; I42.7 Cardiomyopathy due to drug and external agent; I44.7 Left bundle-branch block, unspecified; I35.0 Nonrheumatic aortic (valve) stenosis; I25.118 Atherosclerotic heart disease of native coronary artery with other forms of angina pectoris; E78.5 Hyperlipidemia, unspecified; I48.0 Paroxysmal atrial fibrillation; Z88.0 Allergy status to penicillin; Z88.8 Allergy status to other drugs, medicaments and biological substances; Z95.5 Presence of coronary angioplasty implant and graft; Z86.14 Personal history of Methicillin resistant Staphylococcus aureus infection; Z87.01 Personal history of pneumonia (recurrent)
CPT/HCPCS: 32555; C1729; Z7610

== ENCOUNTER 2024-04-11 08:27 | Emergency (ER) | payer MEDICARE, MEDICAID ==
[~2024-04-11] VITALS: Ht 157.5 cm; Wt 69.7 kg
[~2024-04-11 08:27] MED LIST changes: +ACET-3414 PO; -APIX5TAB3 PO; -ASPI81TA52 PO; -CARV6.2553 PO; -FLAX10007 PO; +LIFI1DRO LEFTEYE; +LIFI1DRO RIGHTEYE; +LOSA-415 PO; -MULT-1219 PO; +NITR1PAT TD; -RANO500T6 PO; +RIVA15TA PO
[2024-04-11] MEDS: sulfamethoxazole/trimethoprim DS (800/160mg) tablet PO STA (10:22)
[2024-04-11] MEDS: diphenhydrAMINE 25mg capsule PO STA (10:22)
[2024-04-11] MEDS ORDERED: SULF1TAB49 PO (10:41)
[2024-04-11 10:58] VITALS: BP 112/67; PULSE 74; RESP 18; TEMP 98.6; O2SAT 98
== END 2024-04-11 10:30 | disposition home or self-care (01) ==
LOC: ER 08:28
DX: L02.01 Cutaneous abscess of face (principal); Z88.1 Allergy status to other antibiotic agents; Z88.5 Allergy status to narcotic agent; Z88.0 Allergy status to penicillin; Z88.8 Allergy status to other drugs, medicaments and biological substances; Z79.899 Other long term (current) drug therapy
CPT/HCPCS: 99283; Q0163

== ENCOUNTER 2024-04-25 06:30 | Day surgery (SDC) | payer MEDICARE, MEDICAID ==
[2024-04-25] VITALS (14 sets, daily range): BP systolic 105–143; BP diastolic 46–73; PULSE 55–87; RESP 15–17; TEMP 97.9; O2SAT 93–95
[~2024-04-25] VITALS: Ht 157.5 cm; Wt 69.1 kg
[2024-04-25] MEDS ORDERED: GLUC1TAB75 PO (07:13)
[2024-04-25] MEDS ORDERED: LOSA50TA64 PO (07:13)
[2024-04-25] MEDS ORDERED: PANT-47 PO (07:18)
[2024-04-25 07:46] LABS: BASOPHILS # (AUTO) 0.1 X10'3 (0-0.2); BASOPHILS % (AUTO) 0.9 % (0-1); EOSINOPHILS # (AUTO) 0.1 X10'3 (0-0.9); EOSINOPHILS % (AUTO) 1.3 % (0-6); HEMATOCRIT 37.2 % (35.0-45.0); HEMOGLOBIN 12.7 g/dl (12.0-16.0); LYMPHOCYTES # (AUTO) 1.2 X10'3 (1.1-4.8); LYMPHOCYTES % (AUTO) 13.6 % (21-51); MEAN CORPUSCULAR HEMOGLOBIN 31.3 PG (27.0-31.0); MONOCYTES # (AUTO) 0.9 X10'3 (0-0.9); MONOCYTES % (AUTO) 10.4 % (2-12); NEUTROPHILS # (AUTO) 6.2 X10'3 (1.8-7.7); NEUTROPHILS % (AUTO) 73.8 % (42-75); PLATELET COUNT 330 X10'3 (140-440); RED BLOOD COUNT 4.04 X10'6 (4.20-5.60); RED CELL DISTRIBUTION WIDTH 13.1 % (11.5-14.5); WHITE BLOOD COUNT 8.4 X10'3 (4.5-11.0)
[2024-04-25 07:53] LABS: ALBUMIN 3.5 G/DL (3.4-5.0); ANION GAP 11 (8-16); BLOOD UREA NITROGEN 17 MG/DL (7-18); BUN/CREATININE RATIO 18.5 (10.0-20.0); CALCIUM 9.3 MG/DL (8.5-10.1); CHLORIDE 97 MMOL/L (99-107); CREATININE 0.92 MG/DL (0.40-0.90); GLUCOSE 120 MG/DL (70-104); MAGNESIUM 2.2 MG/DL (1.5-2.4); POTASSIUM 4.1 MMOL/L (3.5-5.1); SODIUM 135 MMOL/L (135-145); eGFR 58 ML/MIN
[2024-04-25 07:56] LABS: INR 1.1 INR
[2024-04-25] MEDS ORDERED: sodium bicarbonate 1meq/ml syr 150 ML in dextrose 5%-water 1,000 ML IV ONE (08:50)
[2024-04-25] MEDS: diphenhydrAMINE 25mg capsule PO PRN (09:02)
[2024-04-25] MEDS: normal saline 1,000 ML IV SCH (09:02)
[2024-04-25] MEDS ORDERED: LIDOcaine 1% 30ml preserv. free vial ONE (09:03)
[2024-04-25] MEDS ORDERED: heparin 1,000unit/ml 10ml vial 10 ML ONE (09:03)
[2024-04-25] MEDS ORDERED: iohexol 350 MG/ML 50ML vial IV ONE ×2 (09:03→10:34)
[2024-04-25] MEDS ORDERED: iohexol 350MG/ML 100ml bottle IV ONE ×2 (09:03→09:59)
[2024-04-25] MEDS ORDERED: midazolam 1 mg/ML 2ml injection ONE ×2 (09:03→09:40)
[2024-04-25] MEDS ORDERED: fentaNYL/PF 50MCG/1 ML 2ML syringe ONE (09:28)
[2024-04-25] MEDS ORDERED: clopidogrel 300mg tablet ONE (11:10)
[2024-04-25] MEDS ORDERED: aspirin 81mg tab.chew ONE (11:11)
[2024-04-25] MEDS ORDERED: LIDOcaine 1% W/epiNEPHrine 1:100,000 20ml vial ONE (11:22)
[2024-04-25] MEDS ORDERED: HYDROcodone/acetaminophen 5mg/325mg tablet PO PRN (12:10)
[2024-04-25] MEDS ORDERED: proCHLORperazine 10 MG/2 ml inj IV PRN (12:10)
[2024-04-25] MEDS ORDERED: ondansetron/PF 4mg/2ml inj IV PRN (12:10)
[2024-04-25] MEDS ORDERED: HYDROcodone/acetaminophen 10/325mg tab PO PRN (12:10)
== END 2024-04-25 15:30 | disposition home or self-care (01) ==
LOC: SSTAY O 06:30
PROVIDERS: ATTEND Internal Medicine Cardiovascular Disease
DX: I25.118 Atherosclerotic heart disease of native coronary artery with other forms of angina pectoris (principal); I44.7 Left bundle-branch block, unspecified; I42.7 Cardiomyopathy due to drug and external agent; I35.0 Nonrheumatic aortic (valve) stenosis; I48.0 Paroxysmal atrial fibrillation; I25.2 Old myocardial infarction; I65.22 Occlusion and stenosis of left carotid artery; I49.3 Ventricular premature depolarization; I10 Essential (primary) hypertension; E78.5 Hyperlipidemia, unspecified; Z95.5 Presence of coronary angioplasty implant and graft; Z95.2 Presence of prosthetic heart valve; Z79.899 Other long term (current) drug therapy; Z86.14 Personal history of Methicillin resistant Staphylococcus aureus infection; Z87.01 Personal history of pneumonia (recurrent)
CPT/HCPCS: 36415; 80048; 83735; 85025; 85610; 93005; 93459; 99152; 99153; A4615; A6258; C1725; C1751; C1760; C1769; C1874; C1894; C9604; J1644; J2003; J2250; J3010; J3490; J7030; Q0163; Q9967; Z7610; A6449

== ENCOUNTER 2024-05-09 07:52 | Day surgery (SDC) | payer MEDICARE, MEDICAID ==
[~2024-05-09] VITALS: Ht 157.5 cm; Wt 67.7 kg
[2024-05-09] VITALS (11 sets, daily range): BP systolic 95–136; BP diastolic 46–61; PULSE 63–73; RESP 12–15; TEMP 98.1; O2SAT 93–99
[~2024-05-09 07:52] MED LIST changes: -BETA1TAB19 PO; +GLUC1TAB75 PO; -LOSA-415 PO; +LOSA50TA64 PO; -OMEP20CA16 PO; +PANT-47 PO; -SACC250C9 PO
[2024-05-09] MEDS ORDERED: eye vitamin PO (08:25)
[2024-05-09] MEDS ORDERED: LACT1CAP65 PO (08:25)
[2024-05-09] MEDS ORDERED: FLAX1300 (08:25)
[2024-05-09 08:59] LABS: BASOPHILS # (AUTO) 0.1 X10'3 (0-0.2); EOSINOPHILS # (AUTO) 0.2 X10'3 (0-0.9); LYMPHOCYTES # (AUTO) 1.3 X10'3 (1.1-4.8)
[2024-05-09 09:01] LABS: HEMATOCRIT 38.1 % (35.0-45.0); HEMOGLOBIN 12.3 g/dl (12.0-16.0); LYMPHOCYTES % (AUTO) 13.9 % (21-51); MEAN CORPUSCULAR HEMOGLOBIN 30.1 PG (27.0-31.0); MEAN CORPUSCULAR HGB CONC 32.4 g/dL (33.0-36.5); MEAN CORPUSCULAR VOLUME 93.1 FL (78-98); MEAN PLATELET VOLUME 7.9 FL (7.4-10.4); MONOCYTES # (AUTO) 0.9 X10'3 (0-0.9); MONOCYTES % (AUTO) 9.6 % (2-12); NEUTROPHILS # (AUTO) 6.9 X10'3 (1.8-7.7); NEUTROPHILS % (AUTO) 73.5 % (42-75); PLATELET COUNT 303 X10'3 (140-440); RED BLOOD COUNT 4.09 X10'6 (4.20-5.60); WHITE BLOOD COUNT 9.4 X10'3 (4.5-11.0)
[2024-05-09 09:06] LABS: ALBUMIN 3.4 G/DL (3.4-5.0); ANION GAP 9 (8-16); BLOOD UREA NITROGEN 17 MG/DL (7-18); BUN/CREATININE RATIO 17.5 (10.0-20.0); CALCIUM 8.9 MG/DL (8.5-10.1); CHLORIDE 98 MMOL/L (99-107); CREATININE 0.97 MG/DL (0.40-0.90); GLUCOSE 121 MG/DL (70-104); MAGNESIUM 2.1 MG/DL (1.5-2.4); POTASSIUM 3.9 MMOL/L (3.5-5.1); SODIUM 136 MMOL/L (135-145); TOTAL CARBON DIOXIDE 29.3 MMOL/L (24-32); eCRCL 33 ML/MIN; eGFR 54 ML/MIN
[2024-05-09 09:08] LABS: INR 1.1 INR; PROTHROMBIN TIME 11.8 SECONDS (9.0-12.0)
[2024-05-09] MEDS ORDERED: fentaNYL/PF 50MCG/1 ML 2ML syringe ONE (09:26)
[2024-05-09] MEDS ORDERED: LIDOcaine 1% 30ml preserv. free vial ONE (09:26)
[2024-05-09] MEDS ORDERED: midazolam 1 mg/ML 2ml injection ONE ×2 (09:26→10:06)
[2024-05-09] MEDS ORDERED: iohexol 350MG/ML 100ml bottle IV ONE ×2 (09:26→10:33)
[2024-05-09] MEDS ORDERED: heparin 1,000unit/ml 10ml vial 10 ML ONE (09:26)
[2024-05-09] MEDS: diphenhydrAMINE 25mg capsule PO PRN (09:44)
[2024-05-09] MEDS: sodium bicarbonate 1meq/ml syr 150 ML in dextrose 5%-water 1,000 ML IV ONE (09:45)
[2024-05-09] MEDS: normal saline 1,000 ML IV SCH (09:45)
[2024-05-09] MEDS ORDERED: nitroGLYCERIN 500mcg/5mL D5W 5 ML IV ONE (10:28)
[2024-05-09] MEDS ORDERED: hydrALAZINE 20mg/ml inj. ONE (10:54)
[2024-05-09] MEDS ORDERED: HYDROcodone/acetaminophen 10/325mg tab PO PRN (11:35)
[2024-05-09] MEDS ORDERED: HYDROcodone/acetaminophen 5mg/325mg tablet PO PRN (11:35)
[2024-05-16] MEDS ORDERED: OMEP40CA21 PO (19:09)
[2024-05-18] MEDS ORDERED: AMI200T PO (11:58)
[2024-05-18] MEDS ORDERED: ASPI-1071 PO (11:58)
[2024-05-18] MEDS ORDERED: FURO40TA4 PO (11:58)
== END 2024-05-09 14:43 | disposition home or self-care (01) ==
LOC: SSTAY O 07:52
PROVIDERS: ATTEND Internal Medicine Cardiovascular Disease
DX: R94.39 Abnormal result of other cardiovascular function study (principal); I25.10 Atherosclerotic heart disease of native coronary artery without angina pectoris; I25.82 Chronic total occlusion of coronary artery; Z79.899 Other long term (current) drug therapy; I10 Essential (primary) hypertension; E78.5 Hyperlipidemia, unspecified
CPT/HCPCS: 36415; 80048; 83735; 85025; 85610; 92978; 93005; 99152; 99153; A4615; A6258; C1751; C1753; C1760; C1769; C1874; C9600; J0360; J1644; J2003; J2250; J3010; J3490; J7030; J7070; Q0163; Q9967; Z7610